=== PATIENT | female | born 1950 | race Caucasian/White ===

== ENCOUNTER 2018-09-06 12:23 | Emergency (ER) | payer MEDICARE, BC ==
[2018-09-06 12:41] VITALS: BP 154/82
--- NOTE | 2018-09-06 13:22 | UC ---
Abdominal Pain Female HPI - HPI Summary HPI Summary: epigastric abdominal pain x 2 weeks pain is 7 out of 10 , no radiation worse with eating, better with NPO + nausea , no vomiting , no diarrhea , no constipation, no urinary sx , no fever, no chills has been taking some otc meds for detox cleanse, does not know the name of the meds - History of Current Complaint Chief Complaint: UCAbdominalPain Stated Complaint: ABD PAIN Time Seen by Provider: 09/06/18 13:00 Hx Obtained From: Patient Hx Last Menstrual Period: n/a Onset/Duration: Gradual Onset, Lasting Weeks - 2, Still Present Timing: Constant Severity Initially: Moderate Severity Currently: Severe Pain Intensity: 10 Location: Epigastric Radiates: No Character: Burning Aggravating Factor(s): Food Alleviating Factor(s): NPO Associated Signs and Symptoms: Positive: Nausea. Negative: Diaphoresis, Fever, Cough, Chest Pain, Dizzy, Back Pain, Constipation, Blood in Stool, Urinary Symptoms, Decreased Appetite, Vaginal Bleeding, Vomiting, Diarrhea Allergies/Adverse Reactions: Allergies Allergy/AdvReac Type Severity Reaction Status Date / Time morphine Allergy Intermediate See Comment Verified 09/06/18 12:34 [email or web address] [From Ambien] Allergy Intermediate See Comment Verified 09/06/18 12:34 CLORINE AdvReac AGGRIVATES Uncoded 09/06/18 12:34 INTERSTISAL CYSTITIS Home Medications: Home Medications Potassium 1 dose PO DAILY 09/06/18 [History Confirmed 09/06/18] PMH/Surg Hx/FS Hx/Imm Hx Cardiovascular History: Hypertension - Surgical History Surgical History: Yes Surgery Procedure, Year, and Place: C Section x2. R Knee surgery. Gastric bypass. Bladder "blown out". interstem placement - Social History Alcohol Use: None Substance Use Type: None Smoking Status (MU): Former Smoker When Did the Patient Quit Smoking/Using Tobacco: 23 years ago Review of Systems All Other Systems Reviewed And Are Negative: Yes Constitutional: Positive: Negative Skin: Positive: Negative Eyes: Positive: Negative ENT: Positive: Negative Gastrointestinal: Positive: Abdominal Pain, Nausea. Negative: Vomiting, Diarrhea Genitourinary: Positive: Negative Is Patient Immunocompromised?: No Physical Exam Triage Information Reviewed: Yes Appearance: Well-Appearing, No Pain Distress, Well-Nourished Vital Signs: Initial Vital Signs Temp 98.6 F 09/06/18 12:27 Pulse 51 09/06/18 12:27 Resp 17 09/06/18 12:27 BP 154/82 09/06/18 12:27 Pulse Ox 100 09/06/18 12:27 Vital Signs Reviewed: Yes Eye Exam: Normal Eyes: Positive: Conjunctiva Clear ENT: Positive: Normal ENT inspection, Hearing grossly normal, Pharynx normal Neck: Positive: Supple, Nontender, No Lymphadenopathy Respiratory: Positive: Chest non-tender, Lungs clear, Normal breath sounds Cardiovascular: Positive: RRR, No Murmur, Pulses Normal Abdomen Description: Positive: Soft, Other: - epigastric tenderness. Negative: CVA Tenderness (R), CVA Tenderness (L), Distended, Guarding Bowel Sounds: Positive: Present Abd Pain Female Course/Dx - Differential Dx/Diagnosis Provider Diagnosis: Gastritis Discharge - Sign-Out/Discharge Documenting (check all that apply): Patient Departure All imaging exams completed and their final reports reviewed: No Studies - Discharge Plan Condition: Stable Disposition: HOME Prescriptions: Pantoprazole Sodium [Protonix] 40 mg PO DAILY #30 tracikt Patient Education Materials: Gastritis (ED) Referrals: Alton Driscoll MD [Primary Care Provider] - 5 Days Additional Instructions: symptoms cw gastritis with epigastric tenderness will check cbc, bmp , amylase and lipase to r/o hepatitis / pancreatitis start PPI please follow up with your pcp in 5 days go to ED if getting worse - Billing Disposition and Condition Condition: STABLE Disposition: Home
[2018-09-06 18:45] LABS: ABS Lymphocytes 1.1 10^3/ul (1.0-4.8); ABS Monocytes 0.5 10^3/ul (0-0.8); ABS Neutrophils 3.2 10^3/ul (1.5-7.7); Eosinophil % 0.6 %; Hematocrit 38 % (35-47); Hemoglobin 12.7 g/dL (12.0-16.0); Lymphocyte % 22.3 %; Mean Corpuscular HGB Conc 33 g/dL (31-36); Mean Corpuscular Hemoglobin 26 pg (27-31); Mean Corpuscular Volume 79 fL (80-97); Mean Platelet Volume 9.4 fL (7.4-10.4); Platelet Count 250 10^3/uL (150-450); Red Blood Count 4.82 10^6 /uL (3.70-4.87); Red Cell Distribution Width 15 % (10-15); White Blood Count 4.8 10^3/uL (3.5-10.8)
[2018-09-06 19:10] LABS: Albumin 4.1 g/dL (3.2-5.2); Calcium 9.4 mg/dL (8.6-10.3); Potassium 3.5 mmol/L (3.5-5.0); Total Bilirubin 0.6 mg/dL (0.2-1.0)
[2018-09-06 19:16] LABS: Albumin/Globulin Ratio 1.7 (1-3); BUN/Creatinine Ratio 19.1 (8-20); EGFR African American 104.7 (>60); EGFR Non-African American 86.6 (>60); Globulin 2.4 g/dL (2-4); Total Protein 6.5 g/dL (6.4-8.9)
== END 2018-09-06 13:45 | disposition home or self-care (01) ==
LOC: UCCORT 12:23
DX: K29.70 Gastritis, unspecified, without bleeding (principal); I10 Essential (primary) hypertension; Z87.891 Personal history of nicotine dependence
CPT/HCPCS: 36415; 80053; 81003; 82150; 83690; 85025; 99202; G0463